=== PATIENT | female | born 1945 | race Caucasian/White ===

== ENCOUNTER 2017-09-01 18:40 | Inpatient (IN) | payer MEDICARE, MEDICAID ==
[2017-09-01 18:47] VITALS: BP 140/98; PULSE 61; RESP 18; TEMP 97.3; O2SAT 93
[2017-09-01] MEDS ORDERED: ACETAMINOPHEN 325 MG TAB PO PRN (19:30)
[2017-09-01] MEDS ORDERED: MAGNESIUM HYDROXIDE SUSP 30 ML CUP PO PRN (19:30)
[2017-09-01] MEDS ORDERED: ACETAMINOPHEN/HYDROcodone 325 MG/5 MG TAB PO PRN (19:30)
[2017-09-01] MEDS ORDERED: SODIUM CHLORIDE 0.9% FLUSH 10 ML FLUSH IV FLUSH PRN (19:30)
[2017-09-01] MEDS ORDERED: BISACODYL 10 MG SUPP RECTAL PRN (19:30)
[2017-09-01] MEDS ORDERED: SENNOSIDES 8.6 MG TAB PO PRN (19:30)
[2017-09-01] MEDS ORDERED: LACTULOSE SYRUP 20 GM/30 ML CUP PO PRN (19:30)
[2017-09-01] MEDS ORDERED: ACETAMINOPHEN/HYDROcodone 325 MG/10 MG TAB PO PRN (19:30)
[2017-09-01] MEDS ORDERED: ONDANSETRON HCL 4 MG/2 ML VIAL IVP PRN (19:30)
--- NOTE | 2017-09-01 20:13 | RADRPT ---
EXAM DATE/TIME: 09/01/2017 19:40 [facility] COMPARISON: No previous studies available for comparison. INDICATIONS : CHF. MEDICAL HISTORY : Non-responsive. SURGICAL HISTORY : Non-responsive. ENCOUNTER: Initial ACUITY: 1 day PAIN SCORE: Non-responsive. LOCATION: Bilateral chest FINDINGS: Mild cardiomegaly with trace pleural fluid. There is minimal basal atelectasis. Osseous structures ar e intact. CONCLUSION: Mild basal atelectasis. Mild cardiomegaly with trace pleural fluid. Emilio Hayes MD on September 01, 2017 at 20:10 Board Certified Radiologist. This report was verified electronically.
--- NOTE | 2017-09-01 20:34 | HHI.HP ---
HPI Service [facility] Primary [facility] Physician Unknown Admission Diagnosis Diagnoses: Chief Complaint: acute renal failure Travel History International Travel<30 Days: No Contact w/Intl Traveler <30 Da: No History of Present Illness 71-year-old female with a history of developmental delay, hyperlipidemia, hypothyroidism, hypertension was [place] [facility] [place] PCP at [facility] where she resides to admit for acute renal failure. On outpatient labs patient's creatinine continues to increase and currently is 3.9, BUN 148. No prior history of kidney disease. Labs today showed creatine 1.8. Patient does not talk , only says random words, so ROS and history is limited. History is taken from [facility] records sent. PCP: Dr. Meraz Review of Systems Except as stated in HPI: all other systems reviewed are Neg Past Family Social History Past Medical History Developmental delay Hypertension Hyperlipidemia Hypothyroidism Past Surgical History unable to obtain Allergies: Coded Allergies: No Known Allergies (Unverified , 09/01/17) Active Ordered Medications Current Medications Medications (Trade) Dose Ordered Sig/Lori Route Start Time Stop Time Status Last Admin Sodium Chloride 1,000 ml @ 100 mls/hr Q10H IV 09/01/17 20:00 09/01/17 20:47 (NS Flush) 2 ml UNSCH PRN IV FLUSH 09/01/17 19:30 (NS Flush) 2 ml BID IV FLUSH 09/01/17 21:00 09/01/17 20:46 (Zofran Inj) 4 mg Q6H PRN IVP 09/01/17 19:30 (Tylenol) 650 mg Q6H PRN PO 09/01/17 19:30 ([place] 5-325 Mg) 1 tab Q4H PRN PO 09/01/17 19:30 ([place] 10-325 Mg) 1 tab Q4H PRN PO 09/01/17 19:30 (Sophie-Colace) 1 tab BID PO 09/01/17 21:00 (Milk Of Magnesia Liq) 30 ml Q12H PRN PO 09/01/17 19:30 (Senokot) 17.2 mg Q12H PRN PO 09/01/17 19:30 (Dulcolax Supp) 10 mg DAILY PRN RECTAL 09/01/17 19:30 (Lactulose Liq) 30 ml DAILY PRN PO 09/01/17 19:30 Family History unable to obtain Social History unable to obtain Physical Exam Vital Signs Vital Signs Date Time Temp Pulse Resp B/P (MAP) Pulse Ox O2 Delivery O2 Flow Rate FiO2 09/01/17 18:47 97.3 61 18 140/98 (112) 93 Physical Exam GENERAL: This is a well-nourished, well-developed patient, in no apparent distress. SKIN: No rashes, ecchymoses or lesions. Cool and dry. HEAD: Atraumatic. Normocephalic. EYES: Pupils equal round and reactive. Extraocular motions intact. ENT: Nose without bleeding, purulent drainage or septal hematoma. Airway patent. CARDIOVASCULAR: Regular rate and rhythm without murmurs, gallops, or rubs. RESPIRATORY: Clear to auscultation. Breath sounds equal bilaterally. No wheezes , rales, or rhonchi. GASTROINTESTINAL: Abdomen soft, non-tender, nondistended. MUSCULOSKELETAL: Bilateral pedal edema. No calf tenderness. NEUROLOGICAL: Awake and non verbal most of the time. Motor and sensory grossly within normal limits. Caprini VTE Risk Assessment Caprini VTE Risk Assessment: No/Low Risk (score <= 1) Caprini Risk Assessment Model Point Value = 1 Point Value = 2 Point Value = 3 Point Value = 5 Age 41-60 Minor surgery BMI > 25 kg/m2 Swollen legs Varicose veins or History of unexplained or recurrent spontaneous Oral contraceptives or hormone replacement Sepsis (< 1 month) Serious lung disease, including pneumonia (< 1 month) Abnormal pulmonary function Acute myocardial infarction Congestive heart failure (< 1 month) History of inflammatory bowel disease Medical patient at bed rest Age 61-74 Arthroscopic surgery Major open surgery (> 45 min) Laparoscopic surgery (> 45 min) Malignancy Confined to bed (> 72 hours) Immobilizing plaster cast Central venous access Age >= 75 History of VTE Family history of VTE Factor V Leiden Prothrombin [id number] Lupus anticoagulant Anticardiolipin antibodies Elevated serum homocysteine Heparin-induced thrombocytopenia Other congenital or acquired thrombophilia Stroke (< 1 month) Elective arthroplasty Hip, pelvis, or leg fracture Acute spinal cord injury (< 1 month) Prophylaxis Regimen Total Risk Factor Score Risk Level Prophylaxis Regimen 0-1 Low Early ambulation 2 Moderate Order ONE of the following: *Sequential Compression Device (SCD) *Heparin 5000 units SQ BID 3-4 Higher Order ONE of the following medications: *Heparin 5000 units SQ TID *Enoxaparin/Lovenox 40 mg SQ daily (WT < 150 kg, CrCl > 30 mL/min) *Enoxaparin/Lovenox 30 mg SQ daily (WT < 150 kg, CrCl > 10-29 mL/min) *Enoxaparin/Lovenox 30 mg SQ BID (WT < 150 kg, CrCl > 30 mL/min) AND/OR *Sequential Compression Device (SCD) 5 or more Highest Order ONE of the following medications: *Heparin 5000 units SQ TID (Preferred with Epidurals) *Enoxaparin/Lovenox 40 mg SQ daily (WT < 150 kg, CrCl > 30 mL/min) *Enoxaparin/Lovenox 30 mg SQ daily (WT < 150 kg, CrCl > 10-29 mL/min) *Enoxaparin/Lovenox 30 mg SQ BID (WT < 150 kg, CrCl > 30 mL/min) AND *Sequential Compression Device (SCD) Assessment and Plan Problem List: (1) HTN (hypertension) ICD Code: I10 - Essential (primary) hypertension (2) Hypothyroidism ICD Code: E03.9 - Hypothyroidism, unspecified (3) Acute renal failure ICD Code: N17.9 - Acute kidney failure, unspecified Assessment and Plan 71-year-old female with a history of developmental delay, hyperlipidemia, hypothyroidism, hypertension was sent [place] [facility] [place] her PCP at [facility] where she resides to admit for acute renal failure. Acute renal failure, creatine 3.8-->1.8, suspect due to dehydration -IVF for hydration -CMP in am -Renal ultrasound ordered, reviewed and shows mildly echogenic kidneys characteristic of medical renal disease. No hydronephrosis -Consult nephrology if creatine increases HTN, chronic -Resume home medications, monitor vitals Hypothyroidism, chronic -Resume home medications DVT prophylaxis: SCDs Discussed Condition With RN Physician Certification 2 Midnight Certification Type: Admission for Inpatient Services Order for Inpatient Services The services are ordered in accordance with Medicare regulations or non- Medicare payer requirements, as applicable. In the case of services not specified as inpatient-only, they are appropriately provided as inpatient services in accordance with the 2-midnight benchmark. Estimated LOS (days): 2 days is the estimated time the patient will need to remain in the hospital, assuming treatment plan goals are met and no additional complications. Post-Hospital Plan: [facility] [place] Sep 01, 2017 20:34
[2017-09-01 20:46] LABS: AUTOMATED NEUTROPHIL # 11.5 TH/MM3 (1.8-7.7); BASOPHIL # 0.1 TH/MM3 (0-0.2); BASOPHIL % 0.7 % (0.0-2.0); EOSINOPHIL # 0.3 TH/MM3 (0-0.4); EOSINOPHIL % 1.8 % (0.0-4.0); HEMATOCRIT 36.8 % (35.0-46.0); HEMOGLOBIN 12.4 GM/DL (11.6-15.3); LYMPH % 12.7 % (9.0-44.0); LYMPHOCYTE # 1.9 TH/MM3 (1.0-4.8); MEAN CELL VOLUME 89.5 FL (80.0-100.0); MEAN CORPUSCULAR HEMOGLOBIN 30.2 PG (27.0-34.0); MEAN CORPUSCULAR HGB CONC 33.7 % (32.0-36.0); MEAN PLATELET VOLUME 9.1 FL (7.0-11.0); MONO % 7.5 % (0.0-8.0); MONOCYTE # 1.1 TH/MM3 (0-0.9); NEUT % 77.3 % (16.0-70.0); PLATELET COUNT 283 TH/MM3 (150-450); RED BLOOD COUNT 4.11 MIL/MM3 (4.00-5.30); RED CELL DISTRIBUTION WIDTH 13.4 % (11.6-17.2); WHITE BLOOD COUNT 14.9 TH/MM3 (4.0-11.0)
[2017-09-01] MEDS: SODIUM CHLORIDE 0.9% FLUSH 10 ML FLUSH IV FLUSH SCH (20:46)
[2017-09-01] MEDS: SODIUM CHLOR 0.9% 1000 ML INJ 1,000 ML IV SCH (20:47)
[2017-09-01] MEDS: DOCUSATE SODIUM 50 MG/SENNA 8.6 MG TAB PO SCH (20:47)
--- NOTE | 2017-09-01 20:51 | RADRPT ---
EXAM DATE/TIME: 09/01/2017 20:09 [facility] COMPARISON: No previous studies available for comparison. INDICATIONS : Increased BUN/Creatinine. MEDICAL HISTORY : None. SURGICAL HISTORY : None. ENCOUNTER: Initial ACUITY: 1 day PAIN SCORE: 0/10 LOCATION: Bilateral flank MEASUREMENTS: RIGHT KIDNEY: 10.0 x 4.0 x 4.4 cm LEFT KIDNEY: 10.0 x 3.9 x 4.7 cm FINDINGS: Both kidneys measure 10 cm in length. No hydronephrosis. Mildly increased renal echogenicity. [address] right kidney. CONCLUSION: 1. Mildly echogenic kidneys characteristic of medical renal disease. No hydronephrosis. Emilio Hayes MD on September 01, 2017 at 20:48 Board Certified Radiologist. This report was verified electronically.
[2017-09-01 21:06] LABS: INTERNATIONAL NORMALIZED RATIO 1.3 RATIO; PROTHROMBIN TIME - PATIENT 13.4 SEC (9.8-11.6)
[2017-09-01 21:09] LABS: ALBUMIN 2.6 GM/DL (3.4-5.0); AST (GOT) 12 U/L (15-37); BICARBONATE 20.4 MEQ/L (21.0-32.0); BLOOD UREA NITROGEN 118 MG/DL (7-18); CALCIUM 9.1 MG/DL (8.5-10.1); CHLORIDE 111 MEQ/L (98-107); CREATININE 1.85 MG/DL (0.50-1.00); GLOMERULAR FILTRATION RATE 27 ML/MIN (>89); GLUCOSE,RANDOM 107 MG/DL (74-106); SODIUM (NA) 139 MEQ/L (136-145)
[2017-09-01 21:11] LABS: ALT (GPT) 12 U/L (10-53)
[2017-09-01 21:12] LABS: ALKALINE PHOSPHATASE 72 U/L (45-117); TOTAL BILIRUBIN ADULT 0.4 MG/DL (0.2-1.0); TOTAL PROTEIN 6.1 GM/DL (6.4-8.2)
[2017-09-02] VITALS (12 sets, daily range): BP systolic 91–135; BP diastolic 54–90; PULSE 59–86; RESP 18–21; TEMP 97.6–98.9; O2SAT 94–96
[2017-09-02] MEDS ORDERED: MILKSUS PO (01:02)
[2017-09-02] MEDS ORDERED: LOPE-1 PO (01:02)
[2017-09-02] MEDS ORDERED: VITA100064 PO (01:02)
[2017-09-02] MEDS ORDERED: LISI20TA3 PO (01:02)
[2017-09-02] MEDS ORDERED: ATOR20TA15 PO (01:02)
[2017-09-02] MEDS ORDERED: BISA10SU3 RECTAL (01:02)
[2017-09-02] MEDS ORDERED: LABE100T2 PO (01:02)
[2017-09-02] MEDS ORDERED: DOXY1LIQ3 PO (01:02)
[2017-09-02] MEDS ORDERED: CELE1CAP6 PO (01:02)
[2017-09-02] MEDS ORDERED: LEVO25TA4 PO (01:02)
[2017-09-02] MEDS ORDERED: TYLE325T PO ×2 (01:02)
[2017-09-02] MEDS ORDERED: MAGNESIUM HYDROXIDE SUSP 30 ML CUP PO PRN (02:00)
[2017-09-02 05:29] LABS: AUTOMATED NEUTROPHIL # 10.6 TH/MM3 (1.8-7.7); BASOPHIL # 0.1 TH/MM3 (0-0.2); BASOPHIL % 0.7 % (0.0-2.0); EOSINOPHIL # 0.2 TH/MM3 (0-0.4); EOSINOPHIL % 1.3 % (0.0-4.0); HEMOGLOBIN 12.3 GM/DL (11.6-15.3); LYMPH % 12.2 % (9.0-44.0); LYMPHOCYTE # 1.7 TH/MM3 (1.0-4.8); MEAN CELL VOLUME 89.1 FL (80.0-100.0); MEAN CORPUSCULAR HEMOGLOBIN 30.3 PG (27.0-34.0); MEAN PLATELET VOLUME 9.2 FL (7.0-11.0); MONO % 7.7 % (0.0-8.0); NEUT % 78.1 % (16.0-70.0); PLATELET COUNT 257 TH/MM3 (150-450); RED BLOOD COUNT 4.04 MIL/MM3 (4.00-5.30); RED CELL DISTRIBUTION WIDTH 12.9 % (11.6-17.2); WHITE BLOOD COUNT 13.6 TH/MM3 (4.0-11.0)
[2017-09-02 06:15] LABS: ALBUMIN 2.3 GM/DL (3.4-5.0); ALKALINE PHOSPHATASE 76 U/L (45-117); ALT (GPT) 13 U/L (10-53); AST (GOT) 17 U/L (15-37); BICARBONATE 19.3 MEQ/L (21.0-32.0); BLOOD UREA NITROGEN 89 MG/DL (7-18); CALCIUM 8.8 MG/DL (8.5-10.1); CHLORIDE 118 MEQ/L (98-107); CREATININE 1.24 MG/DL (0.50-1.00); GLOMERULAR FILTRATION RATE 43 ML/MIN (>89); GLUCOSE,RANDOM 104 MG/DL (74-106); SODIUM (NA) 146 MEQ/L (136-145); TOTAL BILIRUBIN ADULT 0.3 MG/DL (0.2-1.0)
[2017-09-02] MEDS: LEVOTHYROXINE SODIUM 25 MCG TAB PO SCH (06:26)
[2017-09-02] MEDS: SODIUM CHLOR 0.9% 1000 ML INJ 1,000 ML IV SCH (06:27)
[2017-09-02] MEDS: SODIUM CHLOR 0.45% 1000 ML INJ 1,000 ML IV SCH ×2 (07:08→16:15)
[2017-09-02 07:20] LABS: BACTERIA, URINE OCC /hpf; BILIRUBIN, URINE NEG (NEG); BLOOD, URINE SMALL (NEG); GLUCOSE,URINE NEG (NEG); KETONE, URINE NEG (NEG); NITRITE,URINE NEG (NEG); PH, URINE 5.5 (5.0-8.5); SQUAMOUS EPITHELIAL CELL URINE 1 /hpf (0-5); URINE COLOR LIGHT-YELLOW (YELLW/STRAW); URINE LEUKOCYTE ESTERASE SMALL (NEG)
[2017-09-02] MEDS: LABETALOL HCL 100 MG TAB PO SCH ×2 (08:34→20:20)
[2017-09-02] MEDS: DOCUSATE SODIUM 50 MG/SENNA 8.6 MG TAB PO SCH ×2 (08:34→20:15)
[2017-09-02] MEDS: SODIUM CHLORIDE 0.9% FLUSH 10 ML FLUSH IV FLUSH SCH ×2 (08:35→20:15)
--- NOTE | 2017-09-02 10:53 | HHI.PR ---
Subjective Remarks Follow up acute renal failure/dehydration September 02, 2017-patient seen and examined, minimal conversation, renal indices improving with IV fluid hydration. No acute event overnight. Objective Vitals Vital Signs Date Time Temp Pulse Resp B/P (MAP) Pulse Ox O2 Delivery O2 Flow Rate FiO2 09/02/17 09:38 73 09/02/17 08:00 98.7 68 18 91/54 (66) 95 09/02/17 06:00 97.6 69 21 129/90 (103) 94 09/02/17 04:59 62 09/02/17 00:30 98.1 62 19 135/89 (104) 95 09/02/17 00:00 59 09/01/17 18:47 97.3 61 18 140/98 (112) 93 I/O 09/01/17 09/01/17 09/01/17 09/02/17 09/02/17 09/02/17 07:00 15:00 23:00 07:00 15:00 23:00 Intake Total 0 ml 100 ml 1076 ml Output Total 200 ml 1000 ml Balance -200 ml -900 ml 1076 ml Intake Oral 0 ml 100 ml IV Total 1076 ml Output Urine Total 200 ml 1000 ml # Bowel Movements 0 0 Result Diagram: 09/02/17 0508 09/02/17 0508 Imaging Last Impressions Renal Ultrasound 09/01/17 0000 Signed Impressions: Service Date/Time: Friday, September 01, 2017 20:09 - CONCLUSION: 1. Mildly echogenic kidneys characteristic of medical renal disease. No hydronephrosis. Emilio Hayes MD Chest X-Ray 09/01/17 0000 Signed Impressions: Service Date/Time: Friday, September 01, 2017 19:40 - CONCLUSION: Mild basal atelectasis. Mild cardiomegaly with trace pleural fluid. Emilio Hayes MD Objective Remarks GENERAL: NAD SKIN: Warm and dry. HEAD: Normocephalic. EYES: No scleral icterus. No injection or drainage. NECK: Supple, trachea midline. No JVD or lymphadenopathy. CARDIOVASCULAR: Regular rate and rhythm without murmurs, gallops, or rubs. RESPIRATORY: Breath sounds equal bilaterally. No accessory muscle use. GASTROINTESTINAL: Abdomen soft, non-tender, nondistended. MUSCULOSKELETAL: No cyanosis, or edema. BACK: Nontender without obvious deformity. No CVA tenderness. A/P Problem List: (1) HTN (hypertension) ICD Code: I10 - Essential (primary) hypertension (2) Hypothyroidism ICD Code: E03.9 - Hypothyroidism, unspecified (3) Acute renal failure ICD Code: N17.9 - Acute kidney failure, unspecified Assessment and Plan 71-year-old female with Acute renal failure Renal and this is improving -Continue IVF for hydration Hold on nephrotoxic drug -Renal ultrasound shows mildly echogenic kidneys characteristic of medical renal disease. No hydronephrosis -Consult nephrology PRN HTN, chronic -continue home medications including labetalol however will hold lisinopril/ hydrochlorothiazide Hypothyroidism, chronic -continue home medications DVT prophylaxis: Santana Zimmerman MD Sep 02, 2017 10:53
[2017-09-02] MEDS ORDERED: RESP: ALBUTEROL 2.5 MG/IPRATROPIUM 0.5 MG NEB (PRN) NEB (11:00)
--- NOTE | 2017-09-02 16:32 | EKG ---
Date Performed: 09/01/2017 Time Performed: 20:39:03 PTAGE: 71 years EKG: SINUS BRADYCARDIA BORDERLINE ECG NO PREVIOUS TRACING DOCTOR: Tesha Reyes Interpretating Date/Time 09/02/2017 16:30:31
[2017-09-02] MEDS ORDERED: ATORVASTATIN 20 MG TAB PO SCH (21:00)
[2017-09-03 01:18] VITALS: BP 124/56; PULSE 70; RESP 18; TEMP 98.8; O2SAT 93
[2017-09-03] MEDS: SODIUM CHLOR 0.45% 1000 ML INJ 1,000 ML IV SCH ×2 (02:15→12:54)
[2017-09-03 05:15] VITALS: BP 114/58; PULSE 69; RESP 18; TEMP 99.3; O2SAT 95
[2017-09-03] MEDS: LEVOTHYROXINE SODIUM 25 MCG TAB PO SCH (06:18)
[2017-09-03 08:10] LABS: AUTOMATED NEUTROPHIL # 10.2 TH/MM3 (1.8-7.7); BASOPHIL # 0.1 TH/MM3 (0-0.2); BASOPHIL % 0.5 % (0.0-2.0); EOSINOPHIL # 0.3 TH/MM3 (0-0.4); EOSINOPHIL % 1.9 % (0.0-4.0); HEMATOCRIT 34.5 % (35.0-46.0); HEMOGLOBIN 11.8 GM/DL (11.6-15.3); LYMPH % 15.2 % (9.0-44.0); LYMPHOCYTE # 2.1 TH/MM3 (1.0-4.8); MEAN CELL VOLUME 89.6 FL (80.0-100.0); MEAN CORPUSCULAR HEMOGLOBIN 30.6 PG (27.0-34.0); MEAN CORPUSCULAR HGB CONC 34.2 % (32.0-36.0); MONO % 8.9 % (0.0-8.0); MONOCYTE # 1.2 TH/MM3 (0-0.9); NEUT % 73.5 % (16.0-70.0); PLATELET COUNT 258 TH/MM3 (150-450); RED BLOOD COUNT 3.85 MIL/MM3 (4.00-5.30); RED CELL DISTRIBUTION WIDTH 13.3 % (11.6-17.2); WHITE BLOOD COUNT 13.9 TH/MM3 (4.0-11.0)
[2017-09-03 08:16] VITALS: BP 94/54; PULSE 80; RESP 18; TEMP 97.9; O2SAT 94
[2017-09-03 08:28] LABS: BICARBONATE 19.7 MEQ/L (21.0-32.0); CALCIUM 8.2 MG/DL (8.5-10.1); CREATININE 0.78 MG/DL (0.50-1.00)
[2017-09-03] MEDS: LABETALOL HCL 100 MG TAB PO SCH (09:00)
[2017-09-03] MEDS: DOCUSATE SODIUM 50 MG/SENNA 8.6 MG TAB PO SCH (09:00)
[2017-09-03] MEDS: SODIUM CHLORIDE 0.9% FLUSH 10 ML FLUSH IV FLUSH SCH (09:00)
--- NOTE | 2017-09-03 10:08 | HHI.PR ---
Subjective Remarks Follow up acute renal failure/dehydration September 02, 2017-patient seen and examined, minimal conversation, renal indices improving with IV fluid hydration. No acute event overnight. September 03, 2017-patient seen and examined, renal indices improved. Stable. Afebrile and no acute event overnight Objective Vitals Vital Signs Date Time Temp Pulse Resp B/P (MAP) Pulse Ox O2 Delivery O2 Flow Rate FiO2 09/03/17 08:16 97.9 80 18 94/54 (67) 94 09/03/17 05:15 99.3 69 18 114/58 (76) 95 09/03/17 01:18 98.8 70 18 124/56 (78) 93 09/02/17 23:29 86 09/02/17 20:40 98.6 85 18 121/54 (76) 09/02/17 20:18 98.9 85 18 117/60 (79) 96 09/02/17 18:15 81 09/02/17 13:44 67 09/02/17 12:14 98.3 70 18 111/56 (74) 95 I/O 09/02/17 09/02/17 09/02/17 09/03/17 09/03/17 09/03/17 07:00 15:00 23:00 07:00 15:00 23:00 Intake Total 100 ml 1076 ml 982 ml Output Total 1000 ml 950 ml Balance -900 ml 1076 ml -950 ml 982 ml Intake Oral 100 ml IV Total 1076 ml 982 ml Output Urine Total 1000 ml 950 ml # Bowel Movements 0 2 Result Diagram: 09/03/17 0710 09/03/17 0710 Imaging Last Impressions Renal Ultrasound 09/01/17 0000 Signed Impressions: Service Date/Time: Friday, September 01, 2017 20:09 - CONCLUSION: 1. Mildly echogenic kidneys characteristic of medical renal disease. No hydronephrosis. Emilio Hayes MD Chest X-Ray 09/01/17 0000 Signed Impressions: Service Date/Time: Friday, September 01, 2017 19:40 - CONCLUSION: Mild basal atelectasis. Mild cardiomegaly with trace pleural fluid. Emilio Hayes MD Objective Remarks GENERAL: NAD SKIN: Warm and dry. HEAD: Normocephalic. EYES: No scleral icterus. No injection or drainage. NECK: Supple, trachea midline. No JVD or lymphadenopathy. CARDIOVASCULAR: Regular rate and rhythm without murmurs, gallops, or rubs. RESPIRATORY: Breath sounds equal bilaterally. No accessory muscle use. GASTROINTESTINAL: Abdomen soft, non-tender, nondistended. MUSCULOSKELETAL: No cyanosis, or edema. BACK: Nontender without obvious deformity. No CVA tenderness. Procedures none A/P Problem List: (1) HTN (hypertension) ICD Code: I10 - Essential (primary) hypertension (2) Hypothyroidism ICD Code: E03.9 - Hypothyroidism, unspecified (3) Acute renal failure ICD Code: N17.9 - Acute kidney failure, unspecified Assessment and Plan 71-year-old female with Acute renal failure Renal indices improved -Continue IVF for hydration Hold on nephrotoxic drug -Renal ultrasound shows mildly echogenic kidneys characteristic of medical renal disease. No hydronephrosis -Consult nephrology PRN HTN, chronic -continue home medications including labetalol with holding parameters; continue to hold lisinopril/hydrochlorothiazide Hypothyroidism, chronic -continue home medications DVT prophylaxis: Santana Zimmerman MD Sep 03, 2017 10:08
--- NOTE | 2017-09-03 11:11 | HHI.DS ---
Discharge Summary Admission Date Sep 01, 2017 at 19:28 Discharge Date: Sep 03, 2017 Admitting Diagnosis (1) HTN (hypertension) ICD Code: I10 - Essential (primary) hypertension (2) Hypothyroidism ICD Code: E03.9 - Hypothyroidism, unspecified (3) Acute renal failure ICD Code: N17.9 - Acute kidney failure, unspecified Procedures none Brief History - From Admission 71-year-old female with a history of developmental delay, hyperlipidemia, hypothyroidism, hypertension was sent to [facility] [place] by her PCP at [facility] where she resides to admit for acute renal failure. On outpatient labs patient's creatinine continues to increase and currently is 3.9, BUN 148. No prior history of kidney disease. Labs today showed creatine 1.8. Patient does not talk , only says random words, so ROS and history is limited. [facility] PCP: Dr. Meraz CBC/BMP: 09/03/17 0710 09/03/17 0710 Significant Findings Laboratory Tests Test 09/01/17 20:09 09/02/17 05:08 09/02/17 05:45 09/03/17 07:10 White Blood Count 14.9 TH/MM3 (4.0-11.0) 13.6 TH/MM3 (4.0-11.0) 13.9 TH/MM3 (4.0-11.0) Neutrophils (%) (Auto) 77.3 % (16.0-70.0) 78.1 % (16.0-70.0) 73.5 % (16.0-70.0) Neutrophils # (Auto) 11.5 TH/MM3 (1.8-7.7) 10.6 TH/MM3 (1.8-7.7) 10.2 TH/MM3 (1.8-7.7) Monocytes # (Auto) 1.1 TH/MM3 (0-0.9) 1.0 TH/MM3 (0-0.9) 1.2 TH/MM3 (0-0.9) Prothrombin Time 13.4 SEC (9.8-11.6) Blood Urea Nitrogen 118 MG/DL (7-18) 89 MG/DL (7-18) 39 MG/DL (7-18) Creatinine 1.85 MG/DL (0.50-1.00) 1.24 MG/DL (0.50-1.00) Random Glucose 107 MG/DL (74-106) Total Protein 6.1 GM/DL (6.4-8.2) 6.0 GM/DL (6.4-8.2) Albumin 2.6 GM/DL (3.4-5.0) 2.3 GM/DL (3.4-5.0) Aspartate Amino Transf (AST/SGOT) 12 U/L (15-37) Chloride Level 111 MEQ/L (98-107) 118 MEQ/L (98-107) 114 MEQ/L (98-107) Carbon Dioxide Level 20.4 MEQ/L (21.0-32.0) 19.3 MEQ/L (21.0-32.0) 19.7 MEQ/L (21.0-32.0) Estimat Glomerular Filtration Rate 27 ML/MIN (>89) 43 ML/MIN (>89) 73 ML/MIN (>89) Sodium Level 146 MEQ/L (136-145) Urine Occult Blood SMALL (NEG) Urine Leukocyte Esterase SMALL (NEG) Urine Bacteria OCC /hpf (NONE) Urine Yeast (Budding) OCC (NONE) Red Blood Count 3.85 MIL/MM3 (4.00-5.30) Hematocrit 34.5 % (35.0-46.0) Monocytes (%) (Auto) 8.9 % (0.0-8.0) Calcium Level 8.2 MG/DL (8.5-10.1) Imaging Last Impressions Renal Ultrasound 09/01/17 0000 Signed Impressions: Service Date/Time: Friday, September 01, 2017 20:09 - CONCLUSION: 1. Mildly echogenic kidneys characteristic of medical renal disease. No hydronephrosis. Emilio Hayes MD Chest X-Ray 09/01/17 0000 Signed Impressions: Service Date/Time: Friday, September 01, 2017 19:40 - CONCLUSION: Mild basal atelectasis. Mild cardiomegaly with trace pleural fluid. Emilio Hayes MD PE at Discharge GENERAL: NAD SKIN: Warm and dry. HEAD: Normocephalic. EYES: No scleral icterus. No injection or drainage. NECK: Supple, trachea midline. No JVD or lymphadenopathy. CARDIOVASCULAR: Regular rate and rhythm without murmurs, gallops, or rubs. RESPIRATORY: Breath sounds equal bilaterally. No accessory muscle use. GASTROINTESTINAL: Abdomen soft, non-tender, nondistended. MUSCULOSKELETAL: No cyanosis, or edema. BACK: Nontender without obvious deformity. No CVA tenderness. Hospital Course While in hospital, patient was treated for: Acute renal failure -Renal indices improved with IV fluid hydration -Hold on nephrotoxic drug -Renal ultrasound shows mildly echogenic kidneys characteristic of medical renal disease. No hydronephrosis HTN, chronic -Treated home with medications including labetalol with holding parameters; continue to hold lisinopril/hydrochlorothiazide Hypothyroidism, chronic -Treated with home medications DVT prophylaxis: SCDs Pt Condition on Discharge: Fair Discharge Disposition: Discharge to SNF Discharge Time: > 30 minutes Discharge Instructions DIET: Follow Instructions for: Heart Healthy Diet Activities you can perform: Regular-No Restrictions Follow up Referrals: PCP Follow-up - 2-3 Days Continued Medications: Acetaminophen (Tylenol) 325 Mg Tab 650 MG PO TID, TAB 0 Refills Acetaminophen (Tylenol) 325 Mg Tab 650 MG PO Q6HR PRN for BREAKTHROUGH PAIN, TAB 0 Refills Atorvastatin (Atorvastatin) 20 Mg Tab 20 MG PO HS for Cholesterol Management, #30 TAB 0 Refills Bisacodyl Supp (Bisacodyl Supp) 10 Mg Supp 10 MG RECTAL DAILY PRN for CONSTIPATION, SUPP 0 Refills Cholecalciferol (Vitamin D3) 1,000 Unit Tab 2000 UNITS PO DAILY for Nutritional Supplement, #1 BOTTLE 0 Refills Doxylamine-Dextromethorphan Liq (Robitussin Nighttime Cough Liq) 12.5-30 Mg/10 Ml Soln 10 ML PO Q6H PRN for COUGH, #1 BOTTLE 0 Refills Labetalol (Labetalol) 100 Mg Tab 100 MG PO BID for Blood Pressure Management, TAB 0 Refills Levothyroxine (Levothyroxine) 25 Mcg Tab 25 MCG PO DAILY for Thyroid, #30 TAB 0 Refills Loperamide (Imodium A-D) 2 Mg Capsule 4 MG PO DIRECTED PRN for DIARRHEA, CAP 0 Refills One capsule after each loose stool. Not to exceed 8 tablets per day. Magnesium Hydroxide Liq (Milk of Magnesia Liq) 400 Mg/5 Ml Susp 30 ML PO Q4HR PRN for CONSTIPATION, #1 BOTTLE 0 Refills Discontinued Medications: Celecoxib (Celecoxib) 100 Mg Cap 100 MG PO BID for Pain Management, CAP 0 Refills Lisinopril-Hctz (Lisinopril-Hctz) 20-25 Mg Tab 1 TAB PO DAILY for Blood Pressure Management, #30 TAB 0 Refills Santana Howard MD Sep 03, 2017 11:10
[2017-09-03 12:17] VITALS: BP 113/77; PULSE 100; RESP 18; TEMP 98.7; O2SAT 94
[2017-09-03 15:53] VITALS: BP 138/62; PULSE 78; RESP 18; TEMP 97.2; O2SAT 97
== END 2017-09-03 19:10 | DRG 684 ==
LOC: N05A 18:40 → OBSVTOIN 19:28
PROVIDERS: ADMIT Hospitalist; ATTEND Hospitalist
DX: N17.9 Acute kidney failure, unspecified (principal); E86.0 Dehydration; I10 Essential (primary) hypertension; E78.5 Hyperlipidemia, unspecified; E03.9 Hypothyroidism, unspecified; R62.50 Unspecified lack of expected normal physiological development in childhood
CPT/HCPCS: 71045; 76775; 80048; 80053; 81001; 85025; 85610; 93005; J7030